=== PATIENT | female | born 1935 | race Caucasian/White ===

== ENCOUNTER 2018-04-17 08:55 | Outpatient (CLI) | payer MEDICARE | END 2018-04-17 08:56 | disposition home or self-care (01) | LOC: BICMAMMO 08:55 | PROVIDERS: ATTEND Nurse Practitioner Family | DX: Z12.31 Encounter for screening mammogram for malignant neoplasm of breast (principal); Z78.0 Asymptomatic menopausal state; M85.80 Other specified disorders of bone density and structure, unspecified site | CPT/HCPCS: 77063; 77067; 77080 ==

== ENCOUNTER 2018-05-16 13:34 | Outpatient (CLI) | payer MEDICARE | END 2018-05-16 13:35 | disposition home or self-care (01) | LOC: BICRAD 13:34 | PROVIDERS: ATTEND Nurse Practitioner Family | DX: M25.561 Pain in right knee (principal); M17.11 Unilateral primary osteoarthritis, right knee ==

== ENCOUNTER 2020-08-14 09:00 | Outpatient (CLI) | payer MEDICARE ==
--- NOTE | 2020-08-14 09:40 | MMO ---
Bilateral MAMMO Bilat Screen [facility]. CLINICAL HISTORY: Patient is 85 years old and is seen for screening. The patient has no family history of breast cancer. The patient has no personal history of cancer. The patient has a history of left Excisional Biopsy more than 10 years ago - benign. VIEWS: The views performed were: bilateral craniocaudal with tomosynthesis and bilateral mediolateral oblique with tomosynthesis. FILMS COMPARED: The present examination has been compared to prior imaging studies performed at and at [facility] on 04/17/2018. This study has been interpreted with the assistance of computer-aided detection. MAMMOGRAM FINDINGS: There are scattered fibroglandular densities. There are stable benign appearing calcifications seen in both breasts. There are no suspicious masses, suspicious calcifications, or new areas of architectural distortion. IMPRESSION: THERE IS NO MAMMOGRAPHIC EVIDENCE OF MALIGNANCY. A ROUTINE FOLLOW-UP MAMMOGRAM IN 1 YEAR IS RECOMMENDED. THE RESULTS OF THIS EXAM WERE SENT TO THE PATIENT. ACR BI-RADS Category 2 - Benign finding MAMMOGRAPHY NOTE: 1. A negative mammogram report should not delay a biopsy if a dominant of clinically suspicious mass is present. 2. Approximately 10% to 15% of breast cancers are not detected by mammography. 3. Adenosis and dense breasts may obscure an underlying neoplasm. Reported by: MINDY LOCKETT MD Electonically Signed: [id number]
--- NOTE | 2020-08-14 12:51 | BD ---
DEXA BONE DENSITY STUDY: Date: 08/14/2020 HISTORY: 85-year-old postmenopausal female for screening. COMPARISON: 05/06/2015. FINDINGS: Lumbar Spine: BMD (g/cm2) L1 0.847 T-Score: -1.3 L2 0.885 T-Score: -1.3 L3 1.025 T-Score: -0.5 L4 0.969 T-Score: -0.8 L1-L4 0.939 T-Score: -1.0 Left Femoral Neck: 0.694 T-Score: -1.5 Total Femur: 0.881 T-Score: -0.5 IMPRESSION: Osteopenia. This patient has a 10 year WHO fracture risk for a major osteoporotic fracture of 13% and for a hip fracture of 3.2%. When compared to the prior examination, the bone mineral density in the hip has decreased approximately 5% and the bone mineral density in the spine has increased approximat jessica 11%. POS: EAA
== END 2020-08-14 09:01 | disposition home or self-care (01) ==
LOC: BICMAMMO 09:00
PROVIDERS: ATTEND Nurse Practitioner Family
DX: Z12.31 Encounter for screening mammogram for malignant neoplasm of breast (principal); N95.2 Postmenopausal atrophic vaginitis; M81.0 Age-related osteoporosis without current pathological fracture; M85.89 Other specified disorders of bone density and structure, multiple sites; Z78.0 Asymptomatic menopausal state
CPT/HCPCS: 77063; 77067; 77080

== ENCOUNTER 2021-07-21 11:31 | Outpatient (CLI) | payer MEDICARE | END 2021-07-21 11:32 | disposition home or self-care (01) | LOC: RAD-FRANK 11:31 | PROVIDERS: ATTEND Nurse Practitioner Family | DX: R05 Cough (principal) | CPT/HCPCS: 71046 ==

== ENCOUNTER 2021-08-12 08:32 | Outpatient (CLI) | payer MEDICARE | END 2021-08-12 08:33 | disposition home or self-care (01) | LOC: BICULT 08:32 | PROVIDERS: ATTEND Nurse Practitioner Family | DX: I77.1 Stricture of artery (principal) | CPT/HCPCS: 76775 ==